=== PATIENT | male | born 1955 | race Caucasian/White ===

== ENCOUNTER 2016-07-19 04:09 | Emergency (ER) | payer BC ==
[2016-07-19] MEDS ORDERED: Aspirin Low Dose CHEW TAB* 81 MG PO ONE (04:43)
[2016-07-19 05:40] LABS: Hematocrit 43 % (42-52); Hemoglobin 14.8 g/dl (14.0-18.0); Mean Corpuscular HGB Conc 35 g/dl (31-36); Mean Corpuscular Hemoglobin 33 pg (27-31); Mean Corpuscular Volume 96 fL (80-94); Mean Platelet Volume 10 um3 (7.4-10.4); Red Blood Count 4.49 10^6/ul (4.0-5.4); Red Cell Distribution Width 13 % (10.5-15); White Blood Count 6.4 10^3/ul (3.5-10.8)
[2016-07-19 05:44] LABS: Add Diff/Slide Review? Slide Review Added; Comments Flag Yes
[2016-07-19 05:54] LABS: ALT 34 U/L (7-52); Albumin 3.8 g/dL (3.2-5.2); Alkaline Phosphatase 49 U/L (34-104); BUN/Creatinine Ratio 14.5 (8-20); Blood Urea Nitrogen 12 mg/dL (6-24); CO2 Carbon Dioxide 23 mmol/L (22-32); Chloride 106 mmol/L (101-111); EGFR African American 121.1 (>60); EGFR Non-African American 94.2 (>60); Glucose 110 mg/dL (70-100); Sodium 135 mmol/L (133-145); Total Protein 6.8 g/dL (6.4-8.9)
[2016-07-19 07:35] LABS: Magnesium 1.9 mg/dL (1.9-2.7)
--- NOTE | 2016-07-19 08:25 | RAD ---
Indication: Palpitations. Single frontal view of the chest performed at 0500 hours was reviewed. Comparison is made with previous exam dated June 07, 2015. No mediastinal shift is noted. Heart is of normal size and configuration. Lung mccord appear clear. IMPRESSION: NO ACTIVE CARDIOPULMONARY DISEASE IS NOTED.
[2016-07-19 08:48] VITALS: BP 132/68
--- NOTE | 2016-08-15 23:26 | ED ---
Farshad Peña Adam, scribed for Binh Trores on 07/19/16 at 0429 . Palpitations / Dysrhythmia - HPI Summary HPI Summary: Pt is a 60 year old male presenting with an episode of palpitations, now resolved. He has a Hx of A Fib and he states that this felt like a typical episode of A Fib. He woke up at approximately midnight with rapid heart rate and flutter sensation. He measured his HR at 150 BPM. The palpitations lasted for approximately 2.5 hours and are resolved now. He also reports SOB associated with the palpitations. Pt had an ablation done last year. He takes Pradaxa. FMHx of CAD. - History of Current Complaint Chief Complaint: EDDysrhythmPalp Time Seen by Provider: 07/19/16 04:23 Hx Obtained From: Patient Onset/Duration: Sudden Onset, Lasting Hours, Resolved Timing: Constant Severity Initially: Moderate Severity Currently: None Character: Fast Aggravating: Nothing Alleviating: Nothing - Spontaneous resolution Associated Signs & Symptoms: Shortness of Breath - Allergy/Home Medications Allergies/Adverse Reactions: Allergies Allergy/AdvReac Type Severity Reaction Status Date / Time No Known Allergies Allergy Verified 03/14/15 10:14 PMH/Surg Hx/FS Hx/Imm Hx Endocrine/Hematology History: Reports: Hx Thyroid Disease Cardiovascular History: Reports: Hx Angina, Hx Coronary Artery Disease, Hx Hypercholesterolemia, Hx Hypertension, Other Cardiovascular Problems/Disorders - prior cardiac cath GI History: Reports: Hx Gastroesophageal Reflux Disease Musculoskeletal History: Reports: Hx Arthritis, Hx Back Problems - related to occupation ([employer]), Other Musculoskeletal History - multiple back/shoulder injuries Sensory History: Reports: Hx Contacts or Glasses Opthamlomology History: Reports: Hx Contacts or Glasses - Surgical History Surgery Procedure, Year, and Place: Appendectomy "many years ago" Hx Anesthesia Reactions: No Infectious Disease History: No Infectious Disease History: Denies: Traveled Outside the [place] in Last 30 Days - Family History Known Family History: Positive: Cardiac Disease - CAD - Social History 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 Lives: With Family Alcohol Use: Occasionally Hx Substance Use: No Substance Use Type: Reports: None Hx Tobacco Use: Yes Type: Cigarettes Amount Used/How Often: "lightly" Have You Smoked in the Last Year: Yes Review of Systems Constitutional: Negative Negative: Fever Positive: Palpitations Positive: Shortness Of Breath All Other Systems Reviewed And Are Negative: Yes Physical Exam Triage Information Reviewed: Yes Vital Signs On Initial Exam: Initial Vitals Temp Pulse Resp BP Pulse Ox 97.9 F 87 16 152/74 97 07/19/16 04:18 07/19/16 04:18 07/19/16 04:18 07/19/16 04:18 07/19/16 04:18 Vital Signs Reviewed: Yes Appearance: Positive: Well-Appearing, No Pain Distress Skin: Positive: Warm, Skin Color Reflects Adequate Perfusion, Dry Head/Face: Positive: Normal Head/Face Inspection Eyes: Positive: EOMI, ALBINA ENT: Positive: Normal ENT inspection Neck: Positive: Supple, Nontender Respiratory/Lung Sounds: Positive: Clear to Auscultation, Breath Sounds Present Cardiovascular: Positive: RRR, Pulses are Symmetrical in both Upper and Lower Extremities Abdomen Description: Positive: Nontender, Soft Bowel Sounds: Positive: Present Musculoskeletal: Positive: Normal, Strength/ROM Intact Neurological: Positive: Normal, Sensory/Motor Intact, Alert, Oriented to Person Place, Time Diagnostics - Vital Signs Vital Signs Temp Pulse Resp BP Pulse Ox 07/19/16 04:18 97.9 F 87 16 152/74 97 - Laboratory Result Diagrams: 07/19/16 05:25 07/19/16 05:25 Lab Statement: Any lab studies that have been ordered have been reviewed, and results considered in the medical decision making process. - Radiology CXR Xray Interpretation: No Acute Changes Radiology Interpretation Completed By: ED Physician - EKG 04:18 Cardiac Rate: NL - 84 BPM EKG Rhythm: Sinus Rhythm EKG Interpretation: Q waves in inferior leads. - Additional Comments Diagnostic Additional Comments: Troponin I - 0.00 Course/Dx - Diagnoses Provider Diagnoses: Palpitations, History of atrial fibrillation Discharge - Discharge Plan Condition: Stable Disposition: HOME Patient Education Materials: Atrial Fibrillation (ED), Palpitations (ED) Referrals: Dom Rodriguez MD [Primary Care Provider] - Additional Instructions: Follow up with Dr. Rodriguez. The documentation as recorded by the Farshad menjivar Adam accurately reflects the service I personally performed and the decisions made by , Binh Torres.
== END 2016-07-19 08:48 | disposition home or self-care (01) ==
LOC: ED 04:09
DX: R00.2 Palpitations (principal); Z86.79 Personal history of other diseases of the circulatory system; R06.02 Shortness of breath
CPT/HCPCS: 36415; 71010; 80053; 83735; 83880; 84484; 85025; 85610; 85730; 93005; 99283

== ENCOUNTER 2016-12-30 23:13 | Emergency (ER) | payer BC ==
[2016-12-30 23:55] LABS: Hematocrit 40 % (42-52); Hemoglobin 13.5 g/dl (14.0-18.0); Mean Corpuscular HGB Conc 34 g/dl (31-36); Mean Corpuscular Hemoglobin 34 pg (27-31); Mean Corpuscular Volume 99 fL (80-94); Mean Platelet Volume 9 um3 (7.4-10.4); Red Blood Count 4.02 10^6/ul (4.0-5.4); Red Cell Distribution Width 13 % (10.5-15); White Blood Count 9.1 10^3/ul (3.5-10.8)
[2016-12-31 00:11] LABS: Albumin 3.9 g/dL (3.2-5.2); BUN/Creatinine Ratio 16.5 (8-20); EGFR African American 78.1 (>60); EGFR Non-African American 60.8 (>60); Globulin 3.2 g/dL (2-4); Magnesium 2.1 mg/dL (1.9-2.7); Potassium 3.8 mmol/L (3.5-5.0); Total Bilirubin 0.5 mg/dL (0.2-1.0); Total Protein 7.1 g/dL (6.4-8.9)
[2016-12-31 00:53] LABS: TSH (Thyroid Stimulating Horm) 5.33 mcIU/mL (0.34-5.60)
--- NOTE | 2016-12-31 04:48 | CONSULT ---
Consult Consult: PCP: Chantal Rodriguez MD Cardiology: Seun Saucedo MD Date/Time of Evaluation: 12/31/2016 0415 Reason for Consult: rate controlled AFIB, frequent PACs HPI: Mr Raphael is a 61YO male HX AFIB s/p ablation on carvedilol & dabigatran who relates onset of "skipped beats" and palpitations yesterday evening. He also endorsed so L shoulder/arm/neck pain, but no specific chest pain, SOB, N/V , sweating, or light-headedness. He avoids alcohol, caffeine, & tries to maintain hydration as well as good sleep hygiene. ED evaluation initially revealed frequent PACs which then converted to rate-controlled AFIB. Upon my examination, he states he has been having "tens of thousands of PACs" today. When advised that his telemetry does not confirm this, he becomes somewhat confrontational and states "well it's hundreds". I clarified that he's having frequent PACs, that they are not a threatening phenomenon, but can be discomforting. He does not seem satisfied with this. Seeing him becoming more frustrated I asked what he was looking to have done tonight. He replies that his cardiac engraver [employer] in [place] had offered him another ablation vs starting dofetilide and he would like to proceed. He states, "I want this fixed. I don't want to go in and out of AFIB. I'm not 79 years old sitting in a detention watching TV." I informed him that no one in this facility does cardiac ablation and that dofetilide should be started by his engraver optical frames. Additionally, he was informed that in some cases it is not possible to remain entirely out of AFIB and that the goals of treatment are to minimize his symptoms to which he responds, "I guess there's nothing you can do. I'll just go home and call him [his engraver [employer]] in the morning." PMedHx CAD pAFIB HTN HLD hypothyroidism GERD Ambulatory Orders Nursing to reconcile. Carvedilol TAB* [Coreg TAB*] 37.5 mg PO BID 11/27/12 Levothyroxine TAB* [Synthroid 100 MCG TAB*] 100 mcg PO DAILY 11/30/13 Losartan TAB* [Cozaar TAB*] 50 mg PO BID 11/30/13 Aspirin [Aspirin Adult Low Dose 81 MG] 81 mg PO DAILY 06/07/15 Atorvastatin* [Lipitor 40 MG*] 40 mg PO DAILY 06/07/15 Dabigatran CAP(NF) [Pradaxa CAP(NF)] 150 mg PO BID 06/07/15 Loratadine [Claritin 10 MG CAP] 10 mg PO SEE INSTRUCTIONS PRN 06/07/15 Potassium Chlor TAB* [Klor Con ER TAB 10 MEQ*] 20 meq PO EVERY OTHER DAY Diltiazem CD CAP* [Cardizem CD CAP*] 240 mg PO DAILY 02/01/16 Magnesium Oxide TAB* [MagOx 400 TAB*] 400 mg PO DAILY 02/01/16 Omeprazole CAP* [Prilosec CAP* 20 MG] 20 mg PO DAILY PRN 02/01/16 Allergies No Known Allergies Allergy (Verified 12/30/16 23:32) PSurgHx cardiac ablation appendectomy SocHx: denies tobacco, alcohol, recreational drugs, & caffeine; ; full code status FamHx: positive for CAD, HTN, HLD, hypothyroidism ROS: as above, otherwise reviewed and all were negative Constitutional: NAD, normally developed, overweight white male vitals: Vital Signs Temp 36.8 C 12/30/16 23:28 Pulse 79 12/31/16 04:30 Resp 15 12/31/16 04:30 BP 138/76 12/31/16 04:30 Pulse Ox 97 12/31/16 04:30 Intake & Output 12/30/16 12/30/16 12/31/16 11:59 23:59 11:59 Weight 81.647 kg HEENM: atraumatic; sclera/conjunctiva: non-icteric/clear; hearing: clinically intact; oropharynx: clear, mucosa moist Neck: soft tissue: non-tender; thyroid: normal Pulmonary: clear to auscultation bilaterally, good aeration, no accessory muscle use CV: RR/RR, normal S1S2, no carotid bruit, no jugular venous distention, 2+ B DP/ PT, no edema Abdominal: soft, non-distended, non-tender, no rebound/guarding/rigidity, normoactive bowel sounds, no hepatosplenomegaly or masses, no costovertebral angle tenderness Musculoskeletal: general: grossly intact; gait: stable Integumental: normal appearance and texture of exposed skin Psychiatric orientation: AA&O to PPS affect: anxious, somewhat confrontational mood: cooperative eye contact: good content: reliable responses: timely insight: fair Testing: Lab Results 12/30/16 12/30/16 12/30/16 Range/Units 23:45 23:45 23:45 WBC 9.1 (3.5-10.8) 10^3/ul RBC 4.02 (4.0-5.4) 10^6/ul Hgb 13.5 L (14.0-18.0) g/dl Hct 40 L (42-52) % MCV 99 H (80-94) fL MCH 34 H (27-31) pg MCHC 34 (31-36) g/dl RDW 13 (10.5-15) % Plt Count 191 (150-450) 10^3/ul MPV 9 (7.4-10.4) um3 Neut % (Auto) 66.8 (38-83) % Lymph % (Auto) 20.2 L (25-47) % [place] % (Auto) 9.0 (1-9) % Eos % (Auto) 3.0 (0-6) % Baso % (Auto) 1.0 (0-2) % Absolute Neuts (auto) 6.1 (1.5-7.7) 10^3/ul Absolute Lymphs (auto) 1.8 (1.0-4.8) 10^3/ul Absolute Monos (auto) 0.8 (0-0.8) 10^3/ul Absolute Eos (auto) 0.3 (0-0.6) 10^3/ul Absolute Basos (auto) 0.1 (0-0.2) 10^3/ul Absolute Nucleated RBC 0.01 10^3/ul Nucleated RBC % 0.1 Sodium 135 (133-145) mmol/L Potassium 3.8 (3.5-5.0) mmol/L Chloride 105 (101-111) mmol/L Carbon Dioxide 26 (22-32) mmol/L Anion Gap 4 (2-11) mmol/L BUN 20 (6-24) mg/dL Creatinine 1.21 H (0.67-1.17) mg/dL Est GFR ( Amer) 78.1 (>60) Est GFR (Non-Af Amer) 60.8 (>60) BUN/Creatinine Ratio 16.5 (8-20) Glucose 105 H (70-100) mg/dL Lactic Acid 0.9 (0.5-2.0) mmol/L Calcium 9.0 (8.6-10.3) mg/dL Magnesium 2.1 (1.9-2.7) mg/dL Total Bilirubin 0.50 (0.2-1.0) mg/dL AST 19 (13-39) U/L ALT 16 (7-52) U/L Alkaline Phosphatase 41 (34-104) U/L Troponin I 0.00 (<0.04) ng/mL Total Protein 7.1 (6.4-8.9) g/dL Albumin 3.9 (3.2-5.2) g/dL Globulin 3.2 (2-4) g/dL Albumin/Globulin Ratio 1.2 (1-3) TSH 5.33 (0.34-5.60) mcIU/mL 12/31/16 Range/Units 01:50 WBC (3.5-10.8) 10^3/ul RBC (4.0-5.4) 10^6/ul Hgb (14.0-18.0) g/dl Hct (42-52) % MCV (80-94) fL MCH (27-31) pg MCHC (31-36) g/dl RDW (10.5-15) % Plt Count (150-450) 10^3/ul MPV (7.4-10.4) um3 Neut % (Auto) (38-83) % Lymph % (Auto) (25-47) % [place] % (Auto) (1-9) % Eos % (Auto) (0-6) % Baso % (Auto) (0-2) % Absolute Neuts (auto) (1.5-7.7) 10^3/ul Absolute Lymphs (auto) (1.0-4.8) 10^3/ul Absolute Monos (auto) (0-0.8) 10^3/ul Absolute Eos (auto) (0-0.6) 10^3/ul Absolute Basos (auto) (0-0.2) 10^3/ul Absolute Nucleated RBC 10^3/ul Nucleated RBC % Sodium (133-145) mmol/L Potassium (3.5-5.0) mmol/L Chloride (101-111) mmol/L Carbon Dioxide (22-32) mmol/L Anion Gap (2-11) mmol/L BUN (6-24) mg/dL Creatinine (0.67-1.17) mg/dL Est GFR ( Amer) (>60) Est GFR (Non-Af Amer) (>60) BUN/Creatinine Ratio (8-20) Glucose (70-100) mg/dL Lactic Acid (0.5-2.0) mmol/L Calcium (8.6-10.3) mg/dL Magnesium (1.9-2.7) mg/dL Total Bilirubin (0.2-1.0) mg/dL AST (13-39) U/L ALT (7-52) U/L Alkaline Phosphatase (34-104) U/L Troponin I 0.00 (<0.04) ng/mL Total Protein (6.4-8.9) g/dL Albumin (3.2-5.2) g/dL Globulin (2-4) g/dL Albumin/Globulin Ratio (1-3) TSH (0.34-5.60) mcIU/mL ECG 12/30/2016 23:24:31, personally reviewed: NSR rate 71, no ischemia, no PACs , no PVCs ECG 12/31/2016 03:36:41, personally reviewed: AFIB rate 69, no ischemia ED telemetry: episodic PACs with occasional frequent bursts Impression: 61M presenting with palpitations and increased PACs converting to rate-controlled AFIB on rate control agents and anticoagulated with dabigatran DIAGNOSIS & PLAN Primary rate controlled AFIB & PACs : continue current regimen : call his cardiac engraver [employer] in the AM to arrange follow up for further treatment : return to ED for rapid heart rate, chest pain, SOB, or other symptoms he finds worrisome enough to warrant emergency evaluation L shoulder/neck/arm pain : ECGs w/o ischemia, 0 & 2H troponins 0.00 : outpatient follow up as above anxiety : much of his symptomotology seems related to anxiety & the desire to not have AFIB : outpatient PCP/cardiology to consider initiating anti-anxiety medication, if they feel appropriate. This was not offered as I do not sense an adequate rapport to have the recommendation well received. Secondary CAD : continue outpatient regimen HTN : continue outpatient regimen HLD : continue outpatient regimen hypothyroidism : continue outpatient regimen GERD : continue outpatient regimen
[2016-12-31 05:10] VITALS: BP 142/84
--- NOTE | 2016-12-31 08:51 | ED ---
Meera Peña Rebecca, scribed for Jenifer Yen MD on 12/31/16 at 0047 . Palpitations / Dysrhythmia - HPI Summary HPI Summary: Pt is a 61 y/o M who presents to ED c/o acute on chronic palpitations. Palpitations worsened 2 days ago and have been occurring consistently since then. Currently, palpitations are moderate. Sx characterized as irregular. Sx aggravated and alleviated by nothing. Additionally c/o neck and L shoulder pain characterized as tightness and occasional chest pain characterized as pressure. Denies LE pain. Last stress test February 2016. PMHx A Fib for which he is on Pradaxa. PSHx cardiac ablation (1 year ago) at [facility]. Per pt, Dr. Gandhi who performed the ablation mentioned that he could try Tikosyn to treat A Fib and the pt would like to try this an as option. PMHx LAD blockage at 65% when last checked, which was a few years ago. Dr. Cassidy is delivery recruiter, but not his cardiac surgeon. - History of Current Complaint Chief Complaint: EDChestPainROMI Time Seen by Provider: 12/31/16 00:33 Hx Obtained From: Patient Onset/Duration: Lasting Days - 2 days, Still Present Timing: Constant Severity Currently: Moderate Character: Irregular - "hundreds of them" Aggravating: Nothing Alleviating: Nothing Associated Signs & Symptoms: Chest Pain - Pressure - Allergy/Home Medications Allergies/Adverse Reactions: Allergies Allergy/AdvReac Type Severity Reaction Status Date / Time No Known Allergies Allergy Verified 12/30/16 23:32 PMH/Surg Hx/FS Hx/Imm Hx Previously Healthy: No Endocrine/Hematology History: Reports: Hx Thyroid Disease Cardiovascular History: Reports: Hx Angina, Hx Atrial Fibrillation, Hx Coronary Artery Disease, Hx Hypercholesterolemia, Hx Hypertension, Other Cardiovascular Problems/Disorders - prior cardiac cath with 65% LAD lesion 2 yrs ago, neg stress test 02/2016 GI History: Reports: Hx Gastroesophageal Reflux Disease Musculoskeletal History: Reports: Hx Arthritis, Hx Back Problems - related to occupation ([employer]), Other Musculoskeletal History - multiple back/shoulder injuries Sensory History: Reports: Hx Contacts or Glasses Opthamlomology History: Reports: Hx Contacts or Glasses - Surgical History Surgery Procedure, Year, and Place: Appendectomy "many years ago" Hx Anesthesia Reactions: No - Immunization History Date of Tetanus Vaccine: utd Date of Influenza Vaccine: utd Infectious Disease History: No Infectious Disease History: Denies: Traveled Outside the [place] in Last 30 Days - Family History Known Family History: Positive: Cardiac Disease - father, Other - A Fib (diffuse ) - Social History Occupation: Employed Full-time Lives: With Family Alcohol Use: Occasionally Substance Use Type: Reports: None Smoking Status (MU): Never Smoked Tobacco Amount Used/How Often: "lightly" Have You Smoked in the Last Year: Yes Review of Systems Positive: Palpitations - Irregular, Chest Pain - Pressure Respiratory: Negative Gastrointestinal: Negative Positive: Arthralgia - Neck and L shoulder pain/tightness, Other - Denies LE pain Skin: Negative Neurological: Negative Psychological: Normal All Other Systems Reviewed And Are Negative: Yes Physical Exam Triage Information Reviewed: Yes Vital Signs On Initial Exam: Initial Vitals Temp Pulse Resp BP Pulse Ox 97.2 F 75 18 160/83 99 12/30/16 23:15 12/30/16 23:15 12/30/16 23:15 12/30/16 23:15 12/30/16 23:15 Vital Signs Reviewed: Yes Appearance: Positive: Well-Nourished, Ill-Appearing, Pain Distress Skin: Positive: Warm, Skin Color Reflects Adequate Perfusion Head/Face: Positive: Normal Head/Face Inspection Eyes: Positive: Conjunctiva Clear ENT: Positive: Normal ENT inspection Neck: Positive: Supple Respiratory/Lung Sounds: Positive: Clear to Auscultation, Breath Sounds Present , Other - No respiratory distress Cardiovascular: Positive: RRR, Pulses are Symmetrical in both Upper and Lower Extremities, Other - Brisk capillary refill. Negative: Murmur, Rub, Leg Edema Left, Leg Edema Right Abdomen Description: Positive: Nontender, Soft. Negative: Splenomegaly Bowel Sounds: Positive: Present Musculoskeletal: Positive: Strength/ROM Intact Neurological: Positive: Sensory/Motor Intact, Alert, Oriented to Person Place, Time Psychiatric: Positive: Normal - [place] Coma Scale Coma Scale Total: 15 Diagnostics - Vital Signs Vital Signs Temp Pulse Resp BP Pulse Ox 12/30/16 23:28 98.2 F 70 18 145/75 97 12/30/16 23:15 97.2 F 75 18 160/83 99 - Laboratory Lab Results: Lab Results 12/30/16 12/30/16 12/30/16 Range/Units 23:45 23:45 23:45 WBC 9.1 (3.5-10.8) 10^3/ul RBC 4.02 (4.0-5.4) 10^6/ul Hgb 13.5 L (14.0-18.0) g/dl Hct 40 L (42-52) % MCV 99 H (80-94) fL MCH 34 H (27-31) pg MCHC 34 (31-36) g/dl RDW 13 (10.5-15) % Plt Count 191 (150-450) 10^3/ul MPV 9 (7.4-10.4) um3 Neut % (Auto) 66.8 (38-83) % Lymph % (Auto) 20.2 L (25-47) % [place] % (Auto) 9.0 (1-9) % Eos % (Auto) 3.0 (0-6) % Baso % (Auto) 1.0 (0-2) % Absolute Neuts (auto) 6.1 (1.5-7.7) 10^3/ul Absolute Lymphs (auto) 1.8 (1.0-4.8) 10^3/ul Absolute Monos (auto) 0.8 (0-0.8) 10^3/ul Absolute Eos (auto) 0.3 (0-0.6) 10^3/ul Absolute Basos (auto) 0.1 (0-0.2) 10^3/ul Absolute Nucleated RBC 0.01 10^3/ul Nucleated RBC % 0.1 Sodium 135 (133-145) mmol/L Potassium 3.8 (3.5-5.0) mmol/L Chloride 105 (101-111) mmol/L Carbon Dioxide 26 (22-32) mmol/L Anion Gap 4 (2-11) mmol/L BUN 20 (6-24) mg/dL Creatinine 1.21 H (0.67-1.17) mg/dL Est GFR ( Amer) 78.1 (>60) Est GFR (Non-Af Amer) 60.8 (>60) BUN/Creatinine Ratio 16.5 (8-20) Glucose 105 H (70-100) mg/dL Lactic Acid 0.9 (0.5-2.0) mmol/L Calcium 9.0 (8.6-10.3) mg/dL Magnesium 2.1 (1.9-2.7) mg/dL Total Bilirubin 0.50 (0.2-1.0) mg/dL AST 19 (13-39) U/L ALT 16 (7-52) U/L Alkaline Phosphatase 41 (34-104) U/L Troponin I 0.00 (<0.04) ng/mL Total Protein 7.1 (6.4-8.9) g/dL Albumin 3.9 (3.2-5.2) g/dL Globulin 3.2 (2-4) g/dL Albumin/Globulin Ratio 1.2 (1-3) TSH Pending Result Diagrams: 12/30/16 23:45 12/30/16 23:45 Lab Statement: Any lab studies that have been ordered have been reviewed, and results considered in the medical decision making process. - EKG 2324 Cardiac Rate: NL - 71 bpm EKG Rhythm: Sinus Rhythm EKG Interpretation: Nl AV/IV CT, no QTC, axis (-6), no acute changes EKG Comparison: No Significant Change - 07/19/2016 0336 Cardiac Rate: NL - 69 bpm EKG Rhythm: Atrial Fibrillation EKG Interpretation: nl IV CT, nl QTC, axis (-13) EKG Comparison: Other - Compared with EKG on 12/30, change in rhythm from sinus rhythm to A Fib Re-Evaluation - Re-Evaluation First Eval Re-Evaluation Time: 02:46 Comment: Discussed consultation with Dr. Stevenson and the current disposition plan. Explained the pt's options at this point and advised consultation with the delivery recruiter that performed his ablation. Explained lab results to the pt. Further reaffirms that he is not experiencing SOB and LE pain. Pt requests a printed strip showing his cardiac arrhythmias. Extensively counseled pt and answered any questions he had. He understands and agrees with the D/C plan. Course/Dx - Course Assessment/Plan: Pt is a 61 y/o M who presents to ED c/o acute on chronic palpitations characterized as irregular, worsening 2 days ago, occurring consistently. Additionally c/o neck and L shoulder pain characterized as tightness and occasional chest pain characterized as pressure. Denies LE pain. Last stress test February 2016. PMHx A Fib for which he is on Pradaxa. PSHx cardiac ablation (1 year ago) at [facility]. Per pt, Dr. Gandhi who performed the ablation mentioned that he could try Tikosyn to treat A Fib and the pt would like to try this an as option. PMHx LAD blockage at 65% when last checked, which was a few years ago. Dr. Cassidy is delivery recruiter. Both Troponin levels are 0.00. Discussed care of pt with Dr. Stevenson who explained that he is unable to start Tikosyn and that the PACs are not life threatening arrhythmias. With a low risk stress test less than 1 year ago, he should be D/C and arrange to start Tikosyn with his [place] cardiologits. Immediately prior to discharging pt, he went into atrial fibrillation. New EKG reveal A fib, changed from EKG on 12/30/2016. Discussed care of pt with Dr. Stevenson who will evaluate pt in the ED. Pt will be D/C to home when he again converted back to sinus rhythm with Dx of palpitations. He understands and agrees. Medications reviewed: Levothyroxine - 100 mg QD. Carvedilol - 25 mg BID. Losartan - 50 mg BID. Diltiazem - 240 mg QD. Statin (unsure of which). Pradaxa - 100 or 150 QD. ASA - 81 mg QD - Diagnoses Differential Diagnosis/HQI/PQRI: Positive: Congestive Heart Failure, Coronary Artery Disease, Pericarditis, Pulmonary Embolism Provider Diagnoses: Palpitations, Afib - Physician Notifications Discussed Care Of Patient With: Sunday Stevenson Time Discussed With Above Provider: 00:57 Instructed by Provider To: Other - Explained that he is unable to start Tikosyn and that the PACs are not life threatening arrhythmias. With a low risk stress test less than 1 year ago, he should be D/C and arrange to start Tikosyn with his [place] delivery recruiter. Discussed care of pt with Dr. Stevenson again at 0400 who stated he would evaluate pt in the ED. Discharge - Discharge Plan Condition: Stable Disposition: HOME Patient Education Materials: Palpitations (ED) Referrals: Dom Rodriguez MD [Primary Care Provider] - Additional Instructions: We have documented multiple PAC's while you have been monitored in our department. You have two negative troponin levels. We suggest that you contact your delivery recruiter in [place] to discuss possible Tikosyn therapy. Return to the ER if you have any new or worsening symptoms. The documentation as recorded by the Meera menjivar Rebecca accurately reflects the service I personally performed and the decisions made by , Jenifer Yen MD.
== END 2016-12-31 05:13 | disposition home or self-care (01) ==
LOC: ED 23:13
DX: R00.2 Palpitations (principal); I48.91 Unspecified atrial fibrillation; Z79.01 Long term (current) use of anticoagulants; M54.2 Cervicalgia; M25.512 Pain in left shoulder; R07.89 Other chest pain; E07.9 Disorder of thyroid, unspecified; I20.9 Angina pectoris, unspecified; I10 Essential (primary) hypertension
CPT/HCPCS: 36415; 80053; 83605; 83735; 84443; 84484; 85025; 93005; 99283

== ENCOUNTER 2017-06-30 09:41 | Emergency (ER) | payer BC, MEDICAID ==
[2017-06-30 10:20] LABS: ABS Basophils 0.1 10^3/ul (0-0.2); ABS Eosinophils 0.3 10^3/ul (0-0.6); ABS Lymphocytes 1.3 10^3/ul (1.0-4.8); ABS Monocytes 0.5 10^3/ul (0-0.8); ABS Nucleated RBC 0 10^3/ul; Eosinophil % 3.2 % (0-6); Hematocrit 44 % (42-52); Hemoglobin 14.9 g/dl (14.0-18.0); Lymphocyte % 16.1 % (25-47); Mean Corpuscular HGB Conc 34 g/dl (31-36); Mean Corpuscular Hemoglobin 33 pg (27-31); Mean Corpuscular Volume 97 fL (80-94); Mean Platelet Volume 10 um3 (7.4-10.4); Nucleated Red Blood Cells % 0; Platelet Count 228 10^3/ul (150-450); Red Blood Count 4.47 10^6/ul (4.0-5.4); Red Cell Distribution Width 14 % (10.5-15); White Blood Count 8.2 10^3/ul (3.5-10.8)
[2017-06-30] MEDS ORDERED: NS 0.9% 1000 ML* 1,000 ML IV SCH (10:30)
[2017-06-30 10:33] LABS: EGFR Non-African American 81.3 (>60)
--- NOTE | 2017-06-30 11:14 | RAD ---
INDICATION: Palpitations. COMPARISON: Comparison is made with prior study from July 19, 2016. TECHNIQUE: A portable view of the chest was obtained. FINDINGS: Cardiac and mediastinal contours appear to be within normal limits. The lungs are clear. No pleural effusion is seen. IMPRESSION: NO EVIDENCE FOR ACUTE DISEASE.
[2017-06-30 11:19] LABS: INR 1.08 (0.77-1.02)
--- NOTE | 2017-06-30 14:11 | ED ---
Jostin Peña Stephanie, scribed for Norberto Weiss MD on 06/30/17 at 1047 . HPI Cardiac - HPI Summary HPI Summary: The pt is a 61 y/o M presenting to the ED with c/o atrial fibrillation that began yesterday at 17:00. Symptoms include cough with mild production of mucus, dizziness, SOB, decreased energy and chest pressure. He has been wearing a heart monitor for 30 days to track his cardiac activity. The pt denies nausea, abd pain and urinary symptoms. His symptoms are slightly alleviated by light exercise however, after exercise he feels a pain on his jaw. His last stress test occurred about 1 year ago. - History of Current Complaint Chief Complaint: EDDysrhythmPalp Stated Complaint: CHEST PRESSURE Hx Obtained From: Patient Onset/Duration: Started Days Ago - 1 Timing: Intermittent, Lasting Minutes Pain Intensity: 0 Pain Scale Used: 0-10 Numeric Character: Cough, Productive, Fluttering Aggravating Factor(s): Nothing Alleviating Factor(s): Other: - light exercise Associated Signs and Symptoms: Positive: Dizziness, Shortness of Breath, Cough, Other: - decreased energy, chest pressure - Additional Pertinent History Primary Care Physician: [id number] - Allergy/Home Medications Allergies/Adverse Reactions: Allergies Allergy/AdvReac Type Severity Reaction Status Date / Time No Known Allergies Allergy Verified 12/30/16 23:32 Home Medications: Home Medications Aspirin EC Low Dose* [Ecotrin EC Low Dose 81 MG*] 81 mg PO DAILY 06/30/17 [ History Confirmed 06/30/17] Dofetilide CAP* [Tikosyn CAP*] 500 mcg PO BID 06/30/17 [History Confirmed ] PMH/Surg Hx/FS Hx/Imm Hx Endocrine/Hematology History: Reports: Hx Thyroid Disease Cardiovascular History: Reports: Hx Angina, Hx Atrial Fibrillation, Hx Coronary Artery Disease, Hx Hypercholesterolemia, Hx Hypertension, Other Cardiovascular Problems/Disorders - prior cardiac cath with 65% LAD lesion 2 yrs ago, neg stress test 02/2016 GI History: Reports: Hx Gastroesophageal Reflux Disease Musculoskeletal History: Reports: Hx Arthritis, Hx Back Problems - related to occupation ([employer]), Other Musculoskeletal History - multiple back/shoulder injuries Sensory History: Reports: Hx Contacts or Glasses Opthamlomology History: Reports: Hx Contacts or Glasses - Surgical History Surgery Procedure, Year, and Place: Appendectomy "many years ago" Hx Anesthesia Reactions: No - Immunization History Date of Tetanus Vaccine: utd Date of Influenza Vaccine: utd Infectious Disease History: No Infectious Disease History: Denies: Traveled Outside the [place] in Last 30 Days - Family History Known Family History: Positive: Cardiac Disease - father, Other - A Fib (diffuse ) - Social History 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 Lives: With Family Alcohol Use: Occasionally Substance Use Type: Reports: None Smoking Status (MU): Never Smoked Tobacco Type: Cigarettes Amount Used/How Often: "lightly" Have You Smoked in the Last Year: Yes Review of Systems Positive: Other - dizziness, decreased energy Positive: Chest Pain - pressure Positive: Shortness Of Breath, Cough Negative: Abdominal Pain, Nausea Positive: other - Negative urinary symptoms All Other Systems Reviewed And Are Negative: Yes Physical Exam - Summary Physical Exam Summary: General: well-appearing, no pain distress Skin: warm, color reflects adequate perfusion, dry Head: normal Eyes: EOMI, ALBINA ENT: normal Neck: supple, nontender Respiratory: CTA, breath sounds present Cardiovascular: bradycardic Abdomen: soft, nontender Bowel: present Musculoskeletal: normal, strength/ROM intact Neurological: normal, sensory/motor intact, A&O x3 Psychological: affect/mood appropriate Triage Information Reviewed: Yes Vital Signs On Initial Exam: Initial Vitals Temp Pulse Resp BP Pulse Ox 97.7 F 68 18 153/84 99 06/30/17 09:42 06/30/17 09:42 06/30/17 09:42 06/30/17 09:42 06/30/17 09:42 Vital Signs Reviewed: Yes Diagnostics - Vital Signs Vital Signs Temp Pulse Resp BP Pulse Ox 06/30/17 09:42 97.7 F 68 18 153/84 99 - Laboratory Lab Results: Lab Results 06/30/17 Range/Units 10:00 WBC 8.2 (3.5-10.8) 10^3/ul RBC 4.47 (4.0-5.4) 10^6/ul Hgb 14.9 (14.0-18.0) g/dl Hct 44 (42-52) % MCV 97 H (80-94) fL MCH 33 H (27-31) pg MCHC 34 (31-36) g/dl RDW 14 (10.5-15) % Plt Count 228 (150-450) 10^3/ul MPV 10 (7.4-10.4) um3 Neut % (Auto) 73.3 (38-83) % Lymph % (Auto) 16.1 L (25-47) % [place] % (Auto) 6.5 (1-9) % Eos % (Auto) 3.2 (0-6) % Baso % (Auto) 0.9 (0-2) % Absolute Neuts (auto) 6.0 (1.5-7.7) 10^3/ul Absolute Lymphs (auto) 1.3 (1.0-4.8) 10^3/ul Absolute Monos (auto) 0.5 (0-0.8) 10^3/ul Absolute Eos (auto) 0.3 (0-0.6) 10^3/ul Absolute Basos (auto) 0.1 (0-0.2) 10^3/ul Absolute Nucleated RBC 0 10^3/ul Nucleated RBC % 0 Result Diagrams: 06/30/17 10:00 06/30/17 10:00 Lab Statement: Any lab studies that have been ordered have been reviewed, and results considered in the medical decision making process. - Radiology CXR Xray Interpretation: No Acute Changes Radiology Interpretation Completed By: Radiologist - NO EVIDENCE FOR ACUTE DISEASE. - EKG 09:50 EKG Rhythm: Sinus Rhythm - 63 BPM Ectopy: None EKG Interpretation: Flat Ts in inferior leads. Re-Evaluation - Re-Evaluation First Eval Re-Evaluation Time: 12:03 - ED physician discussed CXR with pt. Change: Unchanged Disposition - Course Course Of Treatment: Medications reviewed. DISCUSSED RESULTS WITH PATIENT. DR AZUL SAW PATIENT IN ED. 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 - Diagnoses Provider Diagnoses: Palpitations, Atrial premature contractions - Physician Notifications Discussed Care Of Patient With: Ruperto Quintanilla - Dr. Quintanilla will come to ED to evaluate pt. Time Discussed With Above Provider: 12:05 Discharge - Discharge Plan Condition: Stable Disposition: HOME Patient Education Materials: Palpitations (ED), Premature Atrial Contractions ( ED) Referrals: Yoandy Azul MD [Medical Doctor] - Dom Rodriguez MD [Primary Care Provider] - Additional Instructions: FOLLOW UP WITH YOUR SHIELD OPERATOR. RETURN TO THE EMERGENCY DEPARTMENT FOR ANY WORSENING OF YOUR CONDITION OR QUESTIONS OR CONCERNS. The documentation as recorded by the Jostin menjivar Stephanie accurately reflects the service I personally performed and the decisions made by me, Norberto Weiss MD.
[2017-06-30 14:34] VITALS: BP 142/68
--- NOTE | 2017-06-30 21:18 | CONS ---
CC: Dr. Dom Rodriguez; Dr. Lucius Gandhi, Department of Electrophysiology, [place], [place] * CARDIOLOGY EMERGENCY ROOM CONSULT: DATE OF CONSULT: 06/30/17 REASON FOR CONSULT: The patient presents to the ER with palpitation sensation, pausing sensation, symptomatic without syncopal or near syncopal episodes. HISTORY OF PRESENT ILLNESS: The patient is a 61-year-old gentleman well known to me from his prior cardiac history. In brief summary, he has a history of paroxysmal atrial fibrillation which was new in onset from 2013, eventually being evaluated by electrophysiology( Dr Lucius Gandhi MD EP service, [place], [place]) and underwent pulmonary vein isolation ablation in June 2015. He was loaded by Dr. Lucius Gandhi on Tikosyn for recurrent atrial fibrillation on 01/20/17. He has been on Tikosyn therapy in addition to carvedilol and Cardizem therapy. He still believes intermittently he notices periods of atrial fibrillation that he feels symptomatic with them, but has had no excessively prolonged rapid heart beat episodes , no lightheaded , syncopal, or near syncopal episodest. He has history of coronary artery disease with abnormal exercise stress test with an EKG suggesting of ischemia with a cardiac catheterization demonstrating a proximal 45% LAD lesion with a heavily calcified mid 60% lesion in the LAD with a vessel appearing being small in caliber of 1.7 to 2.0 mm. There was trivial disease in the circumflex artery. The patient's last stress test was from 2015 during which time he had an exercise nuclear stress test with no symptoms or EKG changes of ischemia to heart rate of 82% of age predicted and nuclear images showed no ischemic zones with an EF of 73%. Most currently now, he has been noticing having episodes of pausing of his heart that he feels sensation like the heart is stopping. It seems to tend to occur more at rest than with exertion. He actually states that if he was to get up and about and exercise for a while and seemed to make it go away. He feels that he has atrial fibrillation at times and he has gotten himself a [employer] monitor and tries to capture strips that demonstrate the possibility of atrial fibrillation. Because of the poor quality of the tracings, P waves cannot be assessed well enough to know if this was PACs producing an irregular rhythm. He presented now to the emergency room because of the sensation of the pauses and believing he was in atrial fibrillation. In the emergency room, the EKG showed sinus rhythm. Rhythm strips actually documented areas where there were pauses seen. On close observation, it looks like there may have been a blocked P wave. He has no atrial fibrillation seen on monitor currently. PAST MEDICAL HISTORY: Includes history of hyperlipidemia, hypertension, hypothyroidism, coronary artery disease, atrial fibrillation, and symptomatic PVCs. CURRENT MEDICATIONS: Include: 1. Aspirin 81 mg a day. 2. Tikosyn 500 mg twice a day. 3. Carvedilol 25 mg twice a day. 4. Diltiazem CD 240 mg daily. 5. Atorvastatin 40 mg a day. 6. Gabapentin 150 mg twice a day. 7. Potassium chloride 20 mEq a day. 8. Omeprazole 20 mg a day. 9. Magnesium oxide 400 mg a day. 10. Losartan 50 mg twice a day. 11. Levothyroxine 100 mcg daily. ALLERGIES: No known drug allergies. REVIEW OF SYSTEMS: The patient denies any rashes, sores, or infections. He denies any fevers, night sweats, or weight loss. He denies any significant shortness of breath, asthma, or wheezing. He denies any vomiting. He does have history of heartburn and takes medication for that. Cardiac: He has a history of coronary artery disease with rare episodes of angina with exertion. He has no history of urinary tract infections or frequent urinations. He has no history of stroke or TIA. He has no history of anemia or excessive bleeding , but he is on Pradaxa. Psychiatric, the patient has a history of anxiety. PHYSICAL EXAM: When I see him reveals pleasant gentleman in no acute distress. Vital Signs: Blood pressure 125/68, pulse is 60 and regular, respirations 17, O2 saturation is 96%. Neck: Supple with no increased JVP. Carotids have fair upstroke and volume. There are no definitive bruits or transmitted murmur. Conjunctivae are pink. Sclerae are clear. Lungs: Reveal no accessory muscle usage. There is good excursion. There are no active rales, rhonchi, or wheezes. Heart: Reveals no visible heaves, no palpable heaves or thrills. Normal S1, S2 with no significant systolic or diastolic murmur. Abdomen: Soft , nontender without organomegaly. Extremities: Without clubbing, cyanosis, or hosea pitting edema. Neuro: The patient is alert and oriented with normal mentation. Musculoskeletal: The patient moves all extremities appropriate. Psychological: The patient with normal affect. DIAGNOSTIC STUDIES/LAB DATA: Laboratory results reveal sodium 138, potassium 4.1, chloride 107, bicarb 25, BUN and creatinine 14 and 0.9, magnesium 2.1, lactic acid 0.9, troponin 0. BNP 81. Hemoglobin and hematocrit 14.9 and 44, white count 8200, and platelet count 228,000. EKG reveals normal sinus rhythm. AL interval 0.13, QRS 0.09, QT 0.46. No acute ST- T wave changes are seen. Chest x-ray report describes no acute pathology. Cardiac and mediastinal contours normal. Rhythm strips reviewed and there appears to be suggestion of blocked PACs, although quality of rhythm strip is somewhat suboptimal, possible sick sinus syndrome cannot be definitively ruled out.. Noncompensatory pauses are seen. OVERALL ASSESSMENT: Bharat is symptomatic with probably blocked premature atrial contractions as well as premature ventricular contractions at times as we had a prior 30-day event monitor on him that had revealed isolated premature ventricular contraction episodes as well as isolated supraventricular tachycardia episodes, occasional blocked premature atrial contractions were suggested versus sick sinus syndrome, without significant pause. At this point in time, the patient will be following up with Dr. Lucius Gandhi for consideration of perhaps implantable loop recorder to assess the volume of his symptoms, so that we can get a handle on further potential management, which could include repeat ablation if he is having frequent bouts of atrial fibrillation or even ablation for symptomatic premature ventricular contractions if there is high enough volume. He has not had any syncopal or near syncopal episodes. We can get further analysis of these what appeared to be blocked premature atrial contractions as well. In the meantime, I will send strips to Dr. Lucius Gandhi. If he has any recommendations regarding change of medications, we will let Hieu know that. [id number]/[facility] #: [id number] [facility] CENTERWin
== END 2017-06-30 14:35 | disposition home or self-care (01) ==
LOC: ED 09:41
DX: R00.2 Palpitations (principal); I49.1 Atrial premature depolarization; R05 Cough; R42 Dizziness and giddiness; R06.02 Shortness of breath; R07.89 Other chest pain; E07.9 Disorder of thyroid, unspecified; I25.119 Atherosclerotic heart disease of native coronary artery with unspecified angina pectoris; I10 Essential (primary) hypertension; I48.91 Unspecified atrial fibrillation; Z79.82 Long term (current) use of aspirin; E78.00 Pure hypercholesterolemia, unspecified; K21.9 Gastro-esophageal reflux disease without esophagitis; Z90.89 Acquired absence of other organs; Z72.0 Tobacco use
CPT/HCPCS: 36415; 71045; 80053; 83605; 83735; 83880; 84484; 85025; 85610; 93005; 96360; 96361; 99284

== ENCOUNTER 2017-10-15 13:39 | Emergency (ER) | payer MEDICAID ==
[2017-10-15] MEDS ORDERED: NS 0.9% 1000 ML* 1,000 ML IV ONE (14:10)
[2017-10-15 15:30] LABS: ABS Basophils 0.1 10^3/ul (0-0.2); ABS Eosinophils 0.3 10^3/ul (0-0.6); ABS Lymphocytes 1.7 10^3/ul (1.0-4.8); ABS Monocytes 0.5 10^3/ul (0-0.8); ABS Neutrophils 4.8 10^3/ul (1.5-7.7); ABS Nucleated RBC 0 10^3/ul; Eosinophil % 3.6 % (0-6); Hematocrit 41 % (42-52); Hemoglobin 13.7 g/dl (14.0-18.0); Lymphocyte % 23.1 % (25-47); Mean Corpuscular HGB Conc 34 g/dl (31-36); Mean Corpuscular Hemoglobin 33 pg (27-31); Mean Corpuscular Volume 97 fL (80-94); Mean Platelet Volume 9.7 um3 (7.4-10.4); Nucleated Red Blood Cells % 0.1; Platelet Count 210 10^3/ul (150-450); Red Blood Count 4.19 10^6/ul (4.0-5.4); Red Cell Distribution Width 13 % (10.5-15); White Blood Count 7.3 10^3/ul (3.5-10.8)
--- NOTE | 2017-10-15 15:33 | RAD ---
Indication: Left mandible pain. CT of the facial bones was obtained in the axial plane. Sagittal and coronal reconstructed images were obtained. The mandible demonstrates no fracture. Dental hardware limits evaluation. No obvious fracture is noted. The parotid glands demonstrate no evidence of sialolith. Submandibular glands are intact. There are multiple periapical abscesses involving the second molar in the left maxilla. No fracture is noted. No adjacent abscess is noted. The zygomatic arch demonstrates no fracture. Nasal arch is unremarkable. There is mucosal thickening of the ethmoid air cells. The orbits are intact. There are dermal calcifications on either side of the soft tissues of the nose. IMPRESSION: No fracture. No evidence of sialolith. Multiple periapical abscesses are noted in the left maxilla at the level of the first or second molars. Multiple dental artifacts are noted.
[2017-10-15 15:47] LABS: INR 1.2 (0.77-1.02)
[2017-10-15 15:50] LABS: EGFR Non-African American 67.6 (>60)
[2017-10-15] MEDS ORDERED: oxyCODONE/Acetamin 5/325 MG* TAB PO ONE (17:16)
[2017-10-15] MEDS ORDERED: Penicillin VK TAB* 250 MG PO ONE ×2 (17:17→17:18)
--- NOTE | 2017-10-15 17:27 | ED ---
Kervin Peña Thomas, scribed for Norberto Weiss MD on 10/15/17 at 1401 . Complex/Multi-Sys Presentation - HPI Summary HPI Summary: The patient is a 62 year old male complaining of left-sided jaw pain for the last four weeks. The pain is intermittent, but it is gradually worsening. The pain is worsened with drinking cold liquids. The pain is alleviated by ice packs to the skin. He has been taking acetaminophen for the pain. He was evaluated by his dentist recently, and dental x-rays were obtained. His dentist told him this isnt your teeth causing you pain. The patient denies fevers and chills. - History Of Current Complaint Chief Complaint: EDDentalPain Time Seen by Provider: 10/15/17 13:51 Hx Obtained From: Patient Onset/Duration: Lasting Weeks - 4, Still Present Timing: Intermittent, Lasting: Severity Currently: Mild Severity Initially: Moderate Location: Pain At: - left-sided jaw Aggravating Factor(s): Drinking cold liquids Alleviating Factor(s): Ice packs, acetaminophen Associated Signs And Symptoms: Positive: Other - Jaw pain; NEGATIVE: fevers, chills - Allergies/Home Medications Allergies/Adverse Reactions: Allergies Allergy/AdvReac Type Severity Reaction Status Date / Time No Known Allergies Allergy Verified 10/15/17 13:42 Home Medications: Home Medications Aspirin EC TAB* [Ecotrin EC Low Dose 81 MG*] 81 mg PO DAILY 10/15/17 [History Confirmed 10/15/17] Atorvastatin* [Lipitor*] 40 mg PO DAILY 10/15/17 [History Confirmed 10/15/17] Carvedilol TAB* [Coreg TAB*] 25 mg PO BID WITH MEALS 10/15/17 [History Confirmed 10/15/17] Diltiazem CD CAP* [Cardizem CD CAP*] 120 mg PO DAILY 10/15/17 [History Confirmed 10/15/17] Dofetilide CAP* [Tikosyn CAP*] 500 mcg PO BID 10/15/17 [History Confirmed ] Famotidine TAB* [Pepcid 20 MG TAB*] 20 mg PO BID PRN 10/15/17 [History Confirmed 10/15/17] Levothyroxine TAB* [Synthroid TAB*] 100 mcg PO DAILY 10/15/17 [History Confirmed 10/15/17] LoraTADine TAB(NF) [Claritin 10 MG TAB(NF)] 10 mg PO DAILY PRN 10/15/17 [ History Confirmed 10/15/17] Losartan TAB* [Cozaar TAB*] 50 mg PO BID 10/15/17 [History Confirmed 10/15/17] Rivaroxaban TAB(*) [Xarelto 20 mg] 20 mg PO DAILY 10/15/17 [History Confirmed ] PMH/Surg Hx/FS Hx/Imm Hx Endocrine/Hematology History: Reports: Hx Thyroid Disease Cardiovascular History: Reports: Hx Angina, Hx Atrial Fibrillation, Hx Coronary Artery Disease, Hx Hypercholesterolemia, Hx Hypertension, Other Cardiovascular Problems/Disorders - prior cardiac cath with 65% LAD lesion 2 yrs ago, neg stress test 02/2016 Respiratory History: Reports: Hx Asthma - MILD GI History: Reports: Hx Gastroesophageal Reflux Disease Musculoskeletal History: Reports: Hx Arthritis, Hx Back Problems - related to occupation ([email or web address]), Other Musculoskeletal History - multiple back/shoulder injuries Sensory History: Reports: Hx Contacts or Glasses Opthamlomology History: Reports: Hx Contacts or Glasses - Surgical History Surgery Procedure, Year, and Place: Appendectomy "many years ago" Hx Anesthesia Reactions: No - Immunization History Date of Tetanus Vaccine: utd Date of Influenza Vaccine: utd Infectious Disease History: No Infectious Disease History: Denies: Traveled Outside the US in Last 30 Days - Family History Known Family History: Positive: Cardiac Disease - father, Other - A Fib (diffuse ) - Social History Alcohol Use: Occasionally Alcohol Amount: a couple a week Substance Use Type: Reports: None Smoking Status (MU): Never Smoked Tobacco Type: Cigarettes Amount Used/How Often: "lightly" Have You Smoked in the Last Year: Yes Review of Systems Negative: Fever, Chills Positive: Other - Left-sided jaw pain All Other Systems Reviewed And Are Negative: Yes Physical Exam - Summary Physical Exam Summary: General: well-appearing, no pain distress Skin: Warm, color reflects adequate perfusion, dry Head: normal Eyes: EOMI, [place] ENT: In the left ear, he has some cerumen in the left ear canal that is not impacted. The part of the left TM that I can see is normal. The right TM is normal. He is mildly tender to the left angle of the jaw just underneath the jaw. On the dentition, there are no obvious caries or gingival swelling. Neck: supple, nontender Respiratory: CTA, breath sounds present Cardiovascular: RRR Abdomen: soft, nontender Bowel: present Musculoskeletal: normal, strength/ROM intact Neurological: normal, sensory/motor intact, A&O x3 Psychological: affect/mood appropriate Triage Information Reviewed: Yes Vital Signs On Initial Exam: Initial Vitals Temp Pulse Resp BP Pulse Ox 96.8 F 61 16 153/77 100 10/15/17 13:42 10/15/17 13:42 10/15/17 13:42 10/15/17 13:42 10/15/17 13:42 Vital Signs Reviewed: Yes Diagnostics - Vital Signs Vital Signs Temp Pulse Resp BP Pulse Ox 10/15/17 13:42 96.8 F 61 16 153/77 100 - Laboratory Lab Results: Lab Results 10/15/17 10/15/17 10/15/17 Range/Units 15:20 15:20 15:22 WBC 7.3 (3.5-10.8) 10^3/ul RBC 4.19 (4.0-5.4) 10^6/ul Hgb 13.7 L (14.0-18.0) g/dl Hct 41 L (42-52) % MCV 97 H (80-94) fL MCH 33 H (27-31) pg MCHC 34 (31-36) g/dl RDW 13 (10.5-15) % Plt Count 210 (150-450) 10^3/ul MPV 9.7 (7.4-10.4) um3 Neut % (Auto) 65.4 (38-83) % Lymph % (Auto) 23.1 L (25-47) % [place] % (Auto) 7.0 (0-7) % Eos % (Auto) 3.6 (0-6) % Baso % (Auto) 0.9 (0-2) % Absolute Neuts (auto) 4.8 (1.5-7.7) 10^3/ul Absolute Lymphs (auto) 1.7 (1.0-4.8) 10^3/ul Absolute Monos (auto) 0.5 (0-0.8) 10^3/ul Absolute Eos (auto) 0.3 (0-0.6) 10^3/ul Absolute Basos (auto) 0.1 (0-0.2) 10^3/ul Absolute Nucleated RBC 0 10^3/ul Nucleated RBC % 0.1 ESR 17 (0-20) mm/Hr INR (Anticoag Therapy) 1.20 H (0.77-1.02) APTT 37.7 H (26.0-36.3) seconds Sodium 139 (139-145) mmol/L Potassium 3.7 (3.5-5.0) mmol/L Chloride 106 (101-111) mmol/L Carbon Dioxide 27 (22-32) mmol/L Anion Gap 6 (2-11) mmol/L BUN 15 (6-24) mg/dL Creatinine 1.10 (0.67-1.17) mg/dL Est GFR ( Amer) 86.9 (>60) Est GFR (Non-Af Amer) 67.6 (>60) BUN/Creatinine Ratio 13.6 (8-20) Glucose 116 H (70-100) mg/dL Lactic Acid (0.5-2.0) mmol/L Calcium 9.3 (8.6-10.3) mg/dL Total Bilirubin 0.60 (0.2-1.0) mg/dL AST 17 (13-39) U/L ALT 17 (7-52) U/L Alkaline Phosphatase 37 (34-104) U/L Total Creatine Kinase 67 (10-223) U/L CK-MB (CK-2) 2.3 (0.6-6.3) ng/mL Troponin I 0.00 (<0.04) ng/mL C-Reactive Protein 1.59 (< 5.00) mg/L Total Protein 6.8 (6.4-8.9) g/dL Albumin 3.9 (3.2-5.2) g/dL Globulin 2.9 (2-4) g/dL Albumin/Globulin Ratio 1.3 (1-3) Amylase 74 (29-103) U/L Lipase 17 (11.0-82.0) U/L TSH 1.74 (0.34-5.60) mcIU/mL Free T4 1.08 (0.61-1.12) ng/dL 10/15/17 Range/Units 15:22 WBC (3.5-10.8) 10^3/ul RBC (4.0-5.4) 10^6/ul Hgb (14.0-18.0) g/dl Hct (42-52) % MCV (80-94) fL MCH (27-31) pg MCHC (31-36) g/dl RDW (10.5-15) % Plt Count (150-450) 10^3/ul MPV (7.4-10.4) um3 Neut % (Auto) (38-83) % Lymph % (Auto) (25-47) % [place] % (Auto) (0-7) % Eos % (Auto) (0-6) % Baso % (Auto) (0-2) % Absolute Neuts (auto) (1.5-7.7) 10^3/ul Absolute Lymphs (auto) (1.0-4.8) 10^3/ul Absolute Monos (auto) (0-0.8) 10^3/ul Absolute Eos (auto) (0-0.6) 10^3/ul Absolute Basos (auto) (0-0.2) 10^3/ul Absolute Nucleated RBC 10^3/ul Nucleated RBC % ESR (0-20) mm/Hr INR (Anticoag Therapy) (0.77-1.02) APTT (26.0-36.3) seconds Sodium (139-145) mmol/L Potassium (3.5-5.0) mmol/L Chloride (101-111) mmol/L Carbon Dioxide (22-32) mmol/L Anion Gap (2-11) mmol/L BUN (6-24) mg/dL Creatinine (0.67-1.17) mg/dL Est GFR ( Amer) (>60) Est GFR (Non-Af Amer) (>60) BUN/Creatinine Ratio (8-20) Glucose (70-100) mg/dL Lactic Acid 0.8 (0.5-2.0) mmol/L Calcium (8.6-10.3) mg/dL Total Bilirubin (0.2-1.0) mg/dL AST (13-39) U/L ALT (7-52) U/L Alkaline Phosphatase (34-104) U/L Total Creatine Kinase (10-223) U/L CK-MB (CK-2) (0.6-6.3) ng/mL Troponin I (<0.04) ng/mL C-Reactive Protein (< 5.00) mg/L Total Protein (6.4-8.9) g/dL Albumin (3.2-5.2) g/dL Globulin (2-4) g/dL Albumin/Globulin Ratio (1-3) Amylase (29-103) U/L Lipase (11.0-82.0) U/L TSH (0.34-5.60) mcIU/mL Free T4 (0.61-1.12) ng/dL Result Diagrams: 10/15/17 15:20 10/15/17 15:22 Lab Statement: Any lab studies that have been ordered have been reviewed, and results considered in the medical decision making process. - CT CT Maxillofacial CT Interpretation: Positive (See Comments) - IMPRESSION: No fracture. No evidence of sialolith. Multiple periapical abscesses are noted in the left maxilla at the level of the first or second molars. Multiple dental artifacts are noted. Dr. Weiss has reviewed this report. CT Interpretation Completed By: Radiologist - EKG 14:14 Cardiac Rate: NL EKG Rhythm: Sinus Rhythm - at [address] Segment: Normal Ectopy: None Complex Multi-Symp Course/Dx Course Of Treatment: Medications reviewed. BP noted and patient urged to follow up with primary care. DISCUSSED RESULTS WITH PATIENT AND HIS . F/U DENTIST ; RETURN IF WORSE. - Diagnoses Provider Diagnoses: HTN (hypertension), Dental abscess Discharge - Sign-Out/Discharge Documenting (check all that apply): Discharge - Discharge Plan Condition: Stable Disposition: HOME Prescriptions: oxyCODONE/Acetamin 5/325 MG* [Percocet 5/325 TAB*] 1 tab PO Q4H PRN #15 tab MDD 6 PRN Reason: Pain Penicillin VK 500 MG TAB(NF) [Penicillin VK 500 mg Tab] 500 mg PO QID #37 tab Patient Education Materials: Dental Abscess (ED) Referrals: Dom Rodriguez MD [Primary Care Provider] - Additional Instructions: FOLLOW UP WITH YOUR DENTIST. RETURN TO THE EMERGENCY DEPARTMENT FOR ANY WORSENING OF YOUR CONDITION OR QUESTIONS OR CONCERNS. - Billing Disposition and Condition Condition: STABLE Disposition: HOME The documentation as recorded by the Kervin menjivar Thomas accurately reflects the service I personally performed and the decisions made by me, Norberto Weiss MD.
[2017-10-15 18:19] VITALS: BP 141/84
== END 2017-10-15 18:22 | disposition home or self-care (01) ==
LOC: ED 13:39
DX: K04.7 Periapical abscess without sinus (principal); I10 Essential (primary) hypertension; E07.9 Disorder of thyroid, unspecified; I48.91 Unspecified atrial fibrillation; I25.10 Atherosclerotic heart disease of native coronary artery without angina pectoris; E78.00 Pure hypercholesterolemia, unspecified; J45.909 Unspecified asthma, uncomplicated; K21.9 Gastro-esophageal reflux disease without esophagitis
CPT/HCPCS: 36415; 70486; 80053; 82150; 82550; 82553; 83605; 83690; 84439; 84443; 84484; 85025; 85610; 85652; 85730; 86140; 93005; 96360; 99282; A9270-GY